=== PATIENT | male | born 1985 | race Caucasian/White ===

== ENCOUNTER 2017-03-14 05:06 | Emergency (ER) | payer BC, OTHER ==
[2017-03-14] MEDS ORDERED: diphenhydrAMINE 50 MG Cap PO ONE (05:43)
[2017-03-14] MEDS ORDERED: Famotidine 20 MG Tab PO ONE (05:43)
[2017-03-14] MEDS ORDERED: Acetaminophen/HYDROcodone 325-5 MG Tab PO ONE (05:43)
[2017-03-14] MEDS ORDERED: predniSONE 20 MG Tab PO ONE (05:43)
[2017-03-14] MEDS ORDERED: Loratadine 10 MG Tab PO ONE (05:43)
[2017-03-14] MEDS ORDERED: EPINEPHrine 1 MG/ML SDV IM ONE ×2 (05:43→06:41)
--- NOTE | 2017-03-14 06:12 | EDM.PDOC ---
ED HPI GENERAL MEDICAL PROBLEM - General Chief Complaint: Skin Complaint Stated Complaint: POSS RASH Time Seen by Provider: 03/14/17 05:34 Source of Information: Reports: Patient, Family, RN Notes Reviewed (6) - History of Present Illness INITIAL COMMENTS - FREE TEXT/NARRATIVE: 31-year-old male comes in with severe hives and achy joint discomfort primarily of his elbows and knees. The hives did start during the night and have gotten progressively worse. The achiness and stiffness of his joints also progressively worse during the night. He was started on minocycline for facial infection about 2 weeks ago. He is not on any other current medication. He is not had any unusual ingestion or exposure. He has never had any type of reaction of this nature before. No chest pain or difficulty breathing. No facial or throat swelling. Generalized Pain Score (Numeric/FACES): 10 - Related Data Allergies Allergy/AdvReac Type Severity Reaction Status Date / Time No Known Allergies Allergy Verified 03/14/17 05:14 Home Meds: Home Meds Hydrocodone/Acetaminophen [[place] 5-325] 1 tab PO Q6HR PRN #10 tablet 03/14/17 [ Rx] Minocycline [Minocin] 100 mg PO DAILY 03/14/17 [History] Past Medical History Dermatologic History: Reports: Seborrheic Dermatitis Social & Family History - Family History Family Medical History: Noncontributory - Tobacco Use Smoking Status *Q: Current Every Day Smoker Years of Tobacco use: 15 Packs/Tins Daily: 1 - Recreational Drug Use Recreational Drug Use: No ED ROS GENERAL - Review of Systems Review Of Systems: See Below Constitutional: Denies: Fever, Chills HEENT: Denies: Throat Pain, Throat Swelling Respiratory: Denies: Shortness of Breath, Wheezing, Pleuritic Chest Pain Cardiovascular: Denies: Chest Pain GI/Abdominal: Denies: Abdominal Pain, Nausea, Vomiting Musculoskeletal: Reports: Joint Pain (Elbows and knees in particular feel very stiff and achy). Denies: Joint Swelling Skin: Reports: Urticaria (Primarily upper extremities and trunk) Neurological: Reports: No Symptoms ED EXAM, SKIN/RASH Exam: See Below General Appearance: Alert, Moderate Distress Eye Exam: Bilateral Eye: PERRL Throat/Mouth: Normal Inspection, Normal Oropharynx Head: No: Facial Swelling Neck: Supple, Full Range of Motion Respiratory/Chest: No Respiratory Distress, Lungs Clear, Normal Breath Sounds. No: Rhonchi, Wheezing Cardiovascular: Tachycardia Extremities: Other (Mild stiffness of his elbows and knees, no visible swelling warmth or erythema) Skin: Warm, Dry Course - Vital Signs Last Recorded V/S: Last Vital Signs Temp 98.5 F 03/14/17 05:12 Pulse 111 H 03/14/17 05:12 Resp 16 03/14/17 05:12 BP 147/72 H 03/14/17 05:12 Pulse Ox 97 03/14/17 05:12 - Orders/Labs/Meds Meds: Medications Discontinued Medications Generic Name Dose Route Start Last Admin Trade Name Freq PRN Reason Stop Dose Admin Hydrocodone Bitart/Acetaminophen 1 tab 03/14/17 05:43 03/14/17 05:55 [place] 325-5 Mg PO 03/14/17 05:44 1 tab ONETIME ONE Administration Diphenhydramine HCl 50 mg 03/14/17 05:43 03/14/17 05:54 Benadryl PO 03/14/17 05:44 50 mg ONETIME ONE Administration Epinephrine HCl 0.3 mg 03/14/17 05:43 03/14/17 05:55 Adrenalin 1:1000 IM 03/14/17 05:44 0.3 mg ONETIME ONE Administration Epinephrine HCl 0.2 mg 03/14/17 06:41 03/14/17 06:46 Adrenalin 1:1000 IM 03/14/17 06:42 0.2 mg ONETIME ONE Administration Famotidine 20 mg 03/14/17 05:43 03/14/17 05:54 Pepcid PO 03/14/17 05:44 20 mg ONETIME ONE Administration Loratadine 10 mg 03/14/17 05:43 03/14/17 05:54 Claritin PO 03/14/17 05:44 10 mg ONETIME ONE Administration Prednisone 60 mg 03/14/17 05:43 03/14/17 05:54 Prednisone PO 03/14/17 05:44 60 mg ONETIME ONE Administration - Re-Assessments/Exams Free Text/Narrative Re-Assessment/Exam: 03/14/17 06:45. Continues to have no facial swelling, no wheezing or respiratory distress. However the hives really have not faded much at all if any after epinephrine and other meds given about 40 minutes ago. We'll follow- up with the 0.2 mg dose of epinephrine IM. I've explained to him that the prednisone does take about 3-4 hours to really begin working in any meaningful way also explained that the symptoms may take several days to resolve. He will not be working today. Discharge instructions as documented. Departure - Departure Time of Disposition: 06:07 Disposition: Home, Self-Care 01 Condition: Fair Clinical Impression: Allergic reaction, urticaria - Discharge Information Prescriptions: Hydrocodone/Acetaminophen [[place] 5-325] 1 tab PO Q6HR PRN #10 tablet PRN Reason: Pain Instructions: Rash, [id number] Referrals: PCP,None [Primary Care Provider] - Forms: ED Department Discharge Additional Instructions: Stop the minocycline, you've been given multiple medications while here in the ED to counteract the allergic reaction, continue Claritin 10 mg daily with your next dose tomorrow morning, prednisone 40 mg twice daily for the next 2 days then 40 mg every morning for 2 days and then 20 mg every morning for 2 days, Tylenol for mild to moderate discomfort or hydrocodone if needed for more severe pain, do not take Tylenol and hydrocodone at the same time, do not drive or work when taking hydrocodone. follow-up with a medical provider at the clinic in 2-3 days for recheck, follow-up with your [employer] later this month as planned, return to ED if symptoms worsening in any way
== END 2017-03-14 06:55 | disposition home or self-care (01) ==
LOC: JD.ED 05:06
DX: L50.0 Allergic urticaria (principal); T49.0X5A Adverse effect of local antifungal, anti-infective and anti-inflammatory drugs, initial encounter; F17.210 Nicotine dependence, cigarettes, uncomplicated
CPT/HCPCS: 96372; 99285; A9270; J0171; 99283

== ENCOUNTER 2019-06-03 16:13 | Day surgery (SDC) | payer SELFPAY ==
[2019-06-03] MEDS ORDERED: Dexamethasone 4 MG/ML 5 ML MDV ONE (16:22)
[2019-06-03] MEDS ORDERED: Propofol 200 MG/20 ML SDV ONE ×2 (16:22→18:00)
[2019-06-03] MEDS ORDERED: Ketorolac 30 MG/ML SDV ONE (16:22)
[2019-06-03] MEDS ORDERED: Lactated Ringers 2,000 ML ONE (16:22)
[2019-06-03] MEDS ORDERED: Ondansetron 4 MG/2 ML SDV ONE (16:22)
[2019-06-03] MEDS ORDERED: Rocuronium 50 MG/5 ML Vial ONE (16:22)
[2019-06-03] MEDS ORDERED: Succinylcholine/Normal Saline 100 MG/5 ML Syringe ONE (16:22)
[2019-06-03] MEDS ORDERED: Lidocaine 1% 6 ML ONE (16:22)
[2019-06-03] MEDS ORDERED: Midazolam 1 MG/ML 2 ML SDV ONE (16:23)
[2019-06-03] MEDS ORDERED: HYDROmorphone 0.5 MG/0.5 ML Syringe ONE ×3 (16:23→18:53)
[2019-06-03] MEDS ORDERED: fentaNYL 250 MCG/5 ML SDV ONE (16:24)
--- NOTE | 2019-06-03 16:48 | PCM.HP.2 ---
H&P History of Present Illness - General Date of Service: 06/03/19 Source of Information: Patient, Provider - History of Present Illness Initial Comments - Free Text/Narative: The patient is a 33 y/o with a 2 day history of RLQ abdominal pain. He has associated nausea. [place] warm at home, but no recorded fever. He denies diarrhea. He was seen by his PCP who found elevated WBC 23.4. He had subsequent CT scan which showed acute appendicitis, with possible perforation. Right Lower Abdomen Pain Score (Numeric/FACES): 10 - Related Data Allergies/Adverse Reactions: Allergies Allergy/AdvReac Type Severity Reaction Status Date / Time clindamycin Allergy Swelling Verified 06/03/19 16:35 Home Medications: Home Meds Mirtazapine [Remeron] 15 mg PO BEDTIME 06/03/19 [History] Past Medical History HEENT History: Reports: None Cardiovascular History: Reports: None Respiratory History: Reports: None Gastrointestinal History: Reports: None Genitourinary History: Reports: None Neurological History: Reports: None Psychiatric History: Reports: None Endocrine/Metabolic History: Reports: None Hematologic History: Reports: None Immunologic History: Reports: None Oncologic (Cancer) History: Reports: None Dermatologic History: Reports: Seborrheic Dermatitis - Infectious Disease History Infectious Disease History: Reports: None - Past Surgical History Musculoskeletal Surgical History: Reports: Other (See Below) Other Musculoskeletal Surgeries/Procedures:: Hand Surgery Social & Family History - Family History Cardiac: Denies: IA Neurological: Denies: CVA Endocrine/Metabolic: Denies: Diabetes, type II Oncologic: Reports: None - Tobacco Use Smoking Status *Q: Current Every Day Smoker Years of Tobacco use: 20 Packs/Tins Daily: 0.5 - Caffeine Use Caffeine Use: Reports: Energy Drinks - Recreational Drug Use Recreational Drug Use: No H&P Review of Systems - Review of Systems: Review Of Systems: See Below General: Reports: Fever HEENT: Reports: No Symptoms Pulmonary: Reports: No Symptoms Cardiovascular: Reports: No Symptoms Gastrointestinal: Reports: Abdominal Pain, Nausea Genitourinary: Reports: No Symptoms Musculoskeletal: Reports: No Symptoms Skin: Reports: No Symptoms Exam - Exam Exam: See Below - Vital Signs Vital Signs: Last Vital Signs Temp 38.0 C 06/03/19 16:33 Pulse 109 H 06/03/19 16:33 Resp 16 06/03/19 16:33 BP 147/84 H 06/03/19 16:33 Pulse Ox 96 06/03/19 16:33 Weight: 77.111 kg - Exam Quality Assessment: Supplemental Oxygen General: Alert, Oriented HEENT: Conjunctiva Clear, EOMI Neck: Supple Lungs: Normal Respiratory Effort Cardiovascular: Regular Rate, Regular Rhythm GI/Abdominal Exam: Soft, No Distention, Guarding (in RLQ), Tender (in RLQ with positive Rovsing) Extremities: Normal Inspection Peripheral Pulses: 1+: Dorsalis Pedis (L), Dorsalis Pedis (R) Skin: Dry, Intact Neurological: Cranial Nerves Intact Neuro Extensive - Mental Status: Normal Mood/Affect Sepsis Event Note - Evaluation Sepsis Screening Result: No Definite Risk - Focused Exam Vital Signs: Vital Signs Temp Pulse Resp BP Pulse Ox 06/03/19 16:33 38.0 C 109 H 16 147/84 H 96 Date Exam was Performed: 06/03/19 Time Exam was Performed: 17:36 *Q Meaningful Use (ADM) - VTE Risk Assess *Q Each Risk Factor Represents 1 Point: Minor Surgery Planned Total Score 1 Point Risk Factors: 1 - Problem List (1) Acute appendicitis SNOMED Code(s): 29790983 ICD Code: K35.80 - UNSPECIFIED ACUTE APPENDICITIS Status: Acute Current Visit: Yes Qualifiers: Acute appendicitis type: with localized peritonitis Appendicitis gangrene presence: unspecified whether gangrene present Appendicitis perforation presence: unspecified whether perforation present Appendicitis abscess presence: unspecified whether abscess present Qualified Code(s): K35.30 - Acute appendicitis with localized peritonitis, without perforation or gangrene Problem List Initiated/Reviewed/Updated: Yes Orders Last 24hrs: 33-year-old male with acute appendicitis - Plan for laparoscopic appendectomy, possible open. Discussed risks of infection and bleeding and possible injury to surrounding organs. His written consent was obtained - IV antibiotics with ceftriaxone and metronidazole - Nothing by mouth - IV fluid resuscitation - Will assess need for inpatient stay based on intraoperative findings Bridget Guaman MD General Surgery - Mortality Measure Prognosis:: Good
[2019-06-03] MEDS ORDERED: cefOXitin 0 ML ONE (16:57)
[2019-06-03] MEDS ORDERED: cefTRIAXone 2 GM AdvVial IV ONE (17:25)
[2019-06-03] MEDS ORDERED: Sodium Chloride 0.9% 100 ML AdvBag ONE (17:25)
[2019-06-03] MEDS ORDERED: metroNIDAZOLE/Normal Saline 500 MG/100 ML Premix Bag ONE (17:25)
[2019-06-03] MEDS ORDERED: Bupivacaine 0.5%/EPINEPHrine 1:200,000 50 ML MDV ONE (17:35)
[2019-06-03] MEDS ORDERED: Lidocaine 1% with EPINEPHrine 1:100,000 20 ML MDV ONE (17:35)
--- NOTE | 2019-06-03 17:36 | PCM.PREANE ---
Preanesthetic Assessment - Anesthesia/Transfusion/Family Hx Anesthesia History: Prior Anesthesia Without Reaction Family History of Anesthesia Reaction: No Transfusion History: No Prior Transfusion(s) Intubation History: Unknown - Review of Systems General: No Symptoms, Fatigue Pulmonary: No Symptoms (SMOKER: 1ppd times 25 years.) Cardiovascular: No Symptoms Gastrointestinal: Decreased Appetite, Diarrhea Neurological: No Symptoms Other: Reports: None, Anxiety - Physical Assessment NPO Status Date: 06/03/19 NPO Status Time: 14:30 Vital Signs: Last Vital Signs Temp 38.0 C 06/03/19 16:33 Pulse 109 H 06/03/19 16:33 Resp 16 06/03/19 16:33 BP 147/84 H 06/03/19 16:33 Pulse Ox 96 06/03/19 16:33 Height: 1.78 m Weight: 77.111 kg ASA Class: 1E Mental Status: Alert & Oriented x3 Airway Class: Mallampati = 2 Dentition: Reports: Normal Dentition, Caries Thyro-Mental Finger Breadths: 3 Mouth Opening Finger Breadths: 3 ROM/Head Extension: Full Lungs: Clear to Auscultation, Normal Respiratory Effort Cardiovascular: Regular Rate, Regular Rhythm, No Murmurs - Lab Values: Labs reviewed and noted and within acceptable ranges to proceed with procedure. - Allergies Allergies/Adverse Reactions: Allergies Allergy/AdvReac Type Severity Reaction Status Date / Time clindamycin Allergy Swelling Verified 06/03/19 16:35 - Anesthesia Plan Pre-Op Medication Ordered: None - Acknowledgements Anesthesia Type Planned: General Anesthesia Pt an Appropriate Candidate for the Planned Anesthesia: Yes Alternatives and Risks of Anesthesia Discussed w Pt/Guardian: Yes Pt/Guardian Understands and Agrees with Anesthesia Plan: Yes PreAnesthesia Questionnaire HEENT History: Reports: None Cardiovascular History: Reports: None Respiratory History: Reports: None Gastrointestinal History: Reports: None Genitourinary History: Reports: None Neurological History: Reports: None Psychiatric History: Reports: None Endocrine/Metabolic History: Reports: None Hematologic History: Reports: None Immunologic History: Reports: None Oncologic (Cancer) History: Reports: None Dermatologic History: Reports: Seborrheic Dermatitis - Infectious Disease History Infectious Disease History: Reports: None - Past Surgical History Musculoskeletal Surgical History: Reports: Other (See Below) Other Musculoskeletal Surgeries/Procedures:: Hand Surgery - SUBSTANCE USE Smoking Status *Q: Current Every Day Smoker Recreational Drug Use History: No - HOME MEDS Home Medications: Home Meds Mirtazapine [Remeron] 15 mg PO BEDTIME 06/03/19 [History] - CURRENT (IN HOUSE) MEDS Current Meds: Current Medications Discontinued Medications Dexamethasone (Dexamethasone) Confirm Administered Dose 20 mg .ROUTE .STK-MED ONE Stop: 06/03/19 16:23 Fentanyl (Sublimaze) Confirm Administered Dose 250 mcg .ROUTE .STK-MED ONE Stop: 06/03/19 16:25 Hydromorphone HCl (Dilaudid) Confirm Administered Dose 0.5 mg .ROUTE .STK-MED ONE Stop: 06/03/19 16:24 Lidocaine HCl (Xylocaine-Mpf 1%) Confirm Administered Dose 6 mls @ as directed .ROUTE .STK-MED ONE Stop: 06/03/19 16:23 Lactated Ringer's (Ringers, Lactated) Confirm Administered Dose 2,000 mls @ as directed .ROUTE .STK-MED ONE Stop: 06/03/19 16:23 Cefoxitin Sodium (Mefoxin In Dextrose,Iso-Osm 2 Gm/50 Ml) Confirm Administered Dose 50 mls @ as directed .ROUTE .STK-MED ONE Stop: 06/03/19 16:58 Ketorolac Tromethamine (Toradol) Confirm Administered Dose 30 mg .ROUTE .STK- MED ONE Stop: 06/03/19 16:23 Midazolam HCl (Versed 1 Mg/Ml) Confirm Administered Dose 2 mg .ROUTE .STK-MED ONE Stop: 06/03/19 16:24 Ondansetron HCl (Zofran) Confirm Administered Dose 4 mg .ROUTE .STK-MED ONE Stop: 06/03/19 16:23 Propofol (Diprivan 20 Ml) Confirm Administered Dose 200 mg .ROUTE .STK-MED ONE Stop: 06/03/19 16:23 Rocuronium [place] (Zemuron) Confirm Administered Dose 50 mg .ROUTE .STK-MED ONE Stop: 06/03/19 16:23 Succinylcholine Chloride (Succinylcholine In Ns Pf) Confirm Administered Dose 100 mg .ROUTE .STK-MED ONE Stop: 06/03/19 16:23
[2019-06-03] MEDS ORDERED: Lidocaine 1%/Sod Bicarbonate in NS 8.4% 1 ML Syringe IDERM PRN (17:40)
[2019-06-03] MEDS ORDERED: Lactated Ringers 1,000 ML IV SCH (17:40)
[2019-06-03] MEDS ORDERED: Sodium Chloride 0.9% 10 ML Syringe FLUSH PRN (18:11)
[2019-06-03] MEDS ORDERED: Ondansetron 4 MG/2 ML SDV IVPUSH PRN (18:22)
[2019-06-03] MEDS ORDERED: diphenhydrAMINE 50 MG/ML SDV IVPUSH PRN (18:22)
[2019-06-03] MEDS ORDERED: HYDROmorphone 0.5 MG/0.5 ML Syringe IVPUSH PRN (18:22)
[2019-06-03] MEDS ORDERED: ePHEDrine 50 MG/ML SDV IVPUSH PRN (18:22)
[2019-06-03] MEDS ORDERED: Albuterol 0.083% 2.5 MG/3 ML Neb Soln NEB PRN (18:22)
[2019-06-03] MEDS ORDERED: fentaNYL 100 MCG/2 ML SDV IVPUSH PRN (18:22)
[2019-06-03] MEDS ORDERED: Neostigmine Methylsulfate 1 MG/ML 5 ML Syringe ONE (18:25)
[2019-06-03] MEDS ORDERED: Phenylephrine 1 MG in Sodium Chloride 0.9% 10 ML IV SCH (18:30)
[2019-06-03] MEDS ORDERED: fentaNYL 100 MCG/2 ML SDV ONE (18:37)
[2019-06-03] MEDS ORDERED: Meperidine 50 MG/ML Vial ONE (18:56)
--- NOTE | 2019-06-03 19:03 | PCM.OPNOTE ---
- General Post-Op/Procedure Note Date of Surgery/Procedure: 06/03/19 Operative Procedure(s): Laparoscopic Appendectomy Findings: Acute appendicitis with gangrenous appendix Pre Op Diagnosis: Acute appendicitis Post-Op Diagnosis: same Anesthesia Technique: General ET Tube Primary Surgeon: Bridget Guaman Anesthesia Provider: Kim Feliz Pathology: Appendix Fluid Replacement, Intraop: 1,300 Output, Urine Amount: 0 EBL in mLs: 5 Complications: None apparent Condition: Good
--- NOTE | 2019-06-03 19:12 | PCM.PRNOTE ---
- Free Text/Narrative Note: Operative Report Date of surgery: June 03, 2019 Preoperative diagnosis: acute appendicitis. Postoperative diagnosis: same Procedure performed: laparoscopic appendectomy Surgeon: Dr. Bridget Guaman Anesthesia: General Art Therapy Certified Supervisor: Kim Feliz CRNA Estimated blood loss [5 mL] IV fluids: 1300 mL Urine output: 0 mL, and voided prior to entering operating room Drains and lines: None Findings: Acute appendicitis with gangrenous appendix, no abscess Pathology: Appendix Indications for procedure: The patient is a 33-year-old male who presented to the clinic with 2 days of right lower quadrant abdominal pain. He had CT scan and workup which revealed acute appendicitis. He was sent to the hospital for emergent surgery. He was consented for laparoscopic appendectomy with possible conversion to open. His written consent was obtained after discussion of risks including bleeding infection and damage to nearby structures. Description of procedure: The patient was taken back to the operating room and placed in supine position on the operating table. SCD boots were in place and functional prior to the start of the procedure. Preoperative antibiotics were administered: Ceftriaxone 2 g IV and metronidazole 500 mg IV. The patient had successful induction of general anesthesia and was intubated without difficulty. It was noted after the initial induction that the patient had an air leak. His tube was then replaced with successful placement of the second tube. The patient tolerated this well. Pt was then prepped and draped in standard surgical fashion and a timeout was performed. We began by making a 15 mm incision in the infraumbilical skin and deepened down to level of the fascia which was then grasped and incised sharply. We entered the peritoneum and then placed stay sutures of 0 Vicryl on the fascial edges. A 12 mm Beck port was then placed into the umbilicus and the balloon was inflated. The abdomen was insufflated to 15 mmHg a 5 mm camera was inserted. There was no evidence of any injury created from entry into the abdomen. A TA P block was performed using mixed 1% lidocaine with epinephrine and 0.5% bupivacaine with epinephrine . We then proceeded to place a 5 mm port under direct visualization in the suprapubic midline and an additional 5mm port in the left lower quadrant. The patient was then positioned in Trendelenburg with right side elevated and we proceeded to mobilize the appendix. There were inflammatory adhesions of the cecum to the abdominal wall. These were bluntly dissected. The appendix was then visualized and gangrenous into the right lower lateral abdominal wall where it was adherent with fibrinous adhesions. The mesoappendix was dissected away using a LigaSure device. The cecum also had adhesions to the lateral abdominal wall. These were taken down using LigaSure device until the base of the appendix was clearly visible and accessible. This was then taken with a tissue staple load. The appendix was placed into the Endo Catch bag. Fluid in the area was then blotted out using a Ray-Desiree. The specimen was in place in the Endo Catch bag. We then inspected and suctioned up any blood in the area. There was no active bleeding at the end of this case. The abdomen was then desufflated and the umbilical fascia closed with 0 Vicryl sutures and the stay sutures were tied, effectively closing the umbilical port site. The skin was then reapproximated at all port sites using a 4-0 Monocryl subcutaneous stitch and covered with Dermabond surgical glue. The patient tolerated the procedure. He was extubated and transported to the PACU in stable condition. All sponge and needle counts were correct. Bridget Guaman MD General Surgery
--- NOTE | 2019-06-03 19:18 | PCM.POSTAN ---
POST ANESTHESIA ASSESSMENT - MENTAL STATUS Mental Status: Alert - VITAL SIGNS Vital Signs: Last Vital Signs Temp 37.6 C 06/03/19 19:10 Pulse 135 H 06/03/19 19:10 Resp 13 06/03/19 19:10 BP 152/97 H 06/03/19 19:10 Pulse Ox 100 06/03/19 19:10 - RESPIRATORY Respiratory Status: Respiratory Rate WNL, Airway Patent, O2 Saturation Stable - CARDIOVASCULAR CV Status: Pulse Rate WNL, Blood Pressure Stable - GASTROINTESTINAL GI Status: No Symptoms - POST OP HYDRATION Hydration Status: Adequate & Stable
--- NOTE | 2019-06-03 19:29 | PCM48HPAN ---
Post Anesthesia Note - EVALUATION WITHIN 48HRS OF ANESTHETIC Vital Signs in Normal Range: Yes Patient Participated in Evaluation: Yes Respiratory Function Stable: Yes Airway Patent: Yes Cardiovascular Function Stable: Yes Hydration Status Stable: Yes Pain Control Satisfactory: Yes Nausea and Vomiting Control Satisfactory: Yes Mental Status Recovered: Yes Vital Signs: Last Vital Signs Temp 37.6 C 06/03/19 19:20 Pulse 125 H 06/03/19 19:20 Resp 20 06/03/19 19:20 BP 138/84 06/03/19 19:20 Pulse Ox 95 06/03/19 19:20
== END 2019-06-03 20:30 | disposition home or self-care (01) ==
LOC: JD.ED 16:13 → JD.SDS 17:21
PROVIDERS: ATTEND Surgery
DX: K35.31 Acute appendicitis with localized peritonitis and gangrene, without perforation (principal); F17.210 Nicotine dependence, cigarettes, uncomplicated; Z88.1 Allergy status to other antibiotic agents
CPT/HCPCS: 44970; 99284; J0330; J0696; J1100; J1170; J1885; J2001; J2175; J2250; J2405; J2704; J2710; J3010; J3490; J7050; J7120; 00840; J0694